=== PATIENT | female | born 1935 | race Two or more races ===

== ENCOUNTER → 2018-02-19 | Outpatient (CLI) | payer OTHER | LOC: CIMAGING 07:58 | PROVIDERS: ATTEND Internal Medicine | DX: R19.00 Intra-abdominal and pelvic swelling, mass and lump, unspecified site (principal); I10 Essential (primary) hypertension | CPT/HCPCS: 76700-PO ==

== ENCOUNTER 2018-04-04 08:18 | Emergency (ER) | payer OTHER ==
[2018-04-04 08:25] VITALS: BP 162/86
--- NOTE | 2018-04-04 09:00 | EDPHY ---
H & P Stated Complaint: 3 wks ago inj l knee in all/yesteerday gave out while just standing Time Seen by Provider: 04/04/18 08:48 HPI/ROS: CHIEF COMPLAINT: Left knee pain HISTORY OF PRESENT ILLNESS: The patient is an 83-year-old female who comes to the emergency department with her granddaughter complaining of left knee pain. She states that about 3 weeks ago she fell and hit her knee on a step. She seemed to do well afterwards however and did not notice any significant pain. However yesterday she was standing in the yd and suddenly developed significant left knee pain and states that she is unable to bear weight. She does not remember any twisting movement. She did not fall. She states that it "just gave out". No fever. No swelling or deformity. She denies other injury. Severity: Moderate Modifying factors: Worsened by movement or weight-bearing REVIEW OF SYSTEMS: Constitutional: denies: chills, fever, recent illness, recent injury EENTM: denies: blurred vision, double vision, nose congestion Respiratory: denies: cough, shortness of breath Cardiac: denies: chest pain, irregular heart rate, lightheadedness, palpitations Gastrointestinal/Abdominal: denies: abdominal pain, diarrhea, nausea, vomiting, blood streaked stools Genitourinary: denies: dysuria, frequency, hematuria, pain Musculoskeletal: See HPI Skin: denies: lesions, rash, jaundice, bruising Neurological: denies: headache, numbness, paresthesia, tingling, dizziness, weakness Hematologic/Lymphatic: denies: blood clots, easy bleeding, easy bruising Immunologic/allergic: denies: HIV/AIDS, transplant 10 systems reviewed and negative except as noted EXAM: GENERAL: Well-appearing, well-nourished and in no acute distress. HEAD: Atraumatic, normocephalic. EYES: Pupils equal round and reactive to light, extraocular movements intact, sclera anicteric, conjunctiva are normal. ENT: TMs normal, nares patent, oropharynx clear without exudates. Moist mucous membranes. NECK: Normal range of motion, supple without lymphadenopathy or JVD. LUNGS: Breath sounds clear to auscultation bilaterally and equal. No wheezes rales or rhonchi. HEART: Regular rate and rhythm without murmurs, rubs or gallops. ABDOMEN: Soft, nontender, normoactive bowel sounds. No guarding, no rebound. No masses appreciated. BACK: No CVA tenderness, no spinal tenderness, step-offs or deformities EXTREMITIES: Normal passive flexion and extension of left knee. No laxity appreciated in any direction. Mild pain with axial loading or grinding. Normal range of motion, no pitting or edema. No clubbing or cyanosis. Normal pulses and sensation distally. NEUROLOGICAL: Cranial nerves II through XII grossly intact. Normal speech, normal gait. 5/5 strength, normal movement in all extremities, normal sensation , normal reflexes PSYCH: Normal mood, normal affect. SKIN: Warm, dry, normal turgor, no visible rashes or lesions. Source: Patient Exam Limitations: No limitations - Personal History Current Tetanus Diphtheria and Acellular Pertussis (TDAP): No - Medical/Surgical History Hx Asthma: No Hx Chronic Respiratory Disease: No Hx Diabetes: No Hx Cardiac Disease: No Hx Renal Disease: No Hx Cirrhosis: No Hx Alcoholism: No Hx HIV/AIDS: No Hx Splenectomy or Spleen Trauma: No Other PMH: denies - Social History Smoking Status: Never smoked Constitutional: Initial Vital Signs Temperature (C) 36.5 C 04/04/18 08:22 Heart Rate 66 04/04/18 08:22 Respiratory Rate 16 04/04/18 08:22 Blood Pressure 162/86 H 04/04/18 08:22 O2 Sat (%) 97 04/04/18 08:22 O2 Delivery Mode Room Air Allergies/Adverse Reactions: morphine Allergy (Verified 04/04/18 08:20) Home Medications: Medication Instructions Recorded Hydrocodone/APAP 5/325 [Bryant 1 tab PO Q4H PRN #10 tab 04/04/18 5/325 (RX)] Oxybutynin 04/04/18 Spironolactone 04/04/18 Medical Decision Making - Diagnostics Imaging Results: Imaging Impressions Knee X-Ray 04/04/18 08:29 Impression: 1. No acute osseous abnormality seen left knee. 2. Mild chondrocalcinosis. 3. Mild to moderate effusion suprapatellar bursa. Imaging: Discussed imaging studies w/ plug paster Radiologist Procedures: Procedure: Splint placement. A knee brace was applied. After application of the splint I returned and re- examined the patient. The splint was adequately immobilizing the joint and distal to the splint the patient's circulation and sensation was intact. ED Course/Re-evaluation: Patient's x-rays are reassuring. Possibly some arthritic changes. Based on exam I suspect a meniscal injury. She is able to strain her leg completely. Will place her in a knee brace and crutches and have her follow up with Orthopedics for further management possibly MRI. Patient and granddaughter understand agree with this plan. She would like some Vicodin for pain. Differential Diagnosis: Partial list of the Differential diagnosis considered include but were not limited to; arthritis, meniscal injury, fracture and although unlikely based on the history and physical exam, I also considered infection, vascular abnormality, dislocation. I discussed these differential diagnoses and the plan with the patient as well as the usual and expected course. The patient understands that the diagnosis is provisional and that in medicine we are not always correct and that further workup is often warranted. Usual and customary warnings were given. All of the patient's questions were answered. The patient was instructed to return to the emergency department should the symptoms at all worsen or return, otherwise to followup with the physician as we discussed. - Data Points Medications Given: Discontinued Medications Hydrocodone Bitart/Acetaminophen (Bryant 5/325) 1 tab PO EDNOW ONE Stop: 04/04/18 09:02 Last Admin: 04/04/18 09:07 Dose: 1 tab Departure - Departure Disposition: Home, Routine, Self-Care Clinical Impression: Knee pain, acute Qualifiers: Laterality: left Qualified Code(s): M25.562 - Pain in left knee Condition: Fair Instructions: Knee Pain (ED) Referrals: Arnoldo Caceres MD [Primary Care Provider] - As per Instructions Shakir Otto MD [Medical Doctor] - 2-3 days, call for appt. Prescriptions: Hydrocodone/APAP 5/325 [Bryant 5/325 (RX)] 1 tab PO Q4H PRN #10 tab PRN Reason: Pain, Moderate
[2018-04-04] MEDS ORDERED: HYDROCODONE/APAP 5/325 TAB PO ONE (09:01)
== END 2018-04-04 09:40 | disposition home or self-care (01) ==
DX: M25.562 Pain in left knee (principal); M25.462 Effusion, left knee; M11.262 Other chondrocalcinosis, left knee
CPT/HCPCS: 73564; 99283; L1830